=== PATIENT | female | born 1940 | race Caucasian/White ===

== ENCOUNTER 2021-12-24 06:30 | Inpatient (IN) | payer MEDICARE, BC ==
[~2021-12-24] VITALS: Ht 157.5 cm; Wt 55.4 kg
[2021-12-24 07:36] LABS: ALANINE AMINOTRANSFERASE 30 U/L (12-78); ALBUMIN 3.4 G/DL (3.4-5.0); ALKALINE PHOSPHATASE 82 IU/L (46-116); ANION GAP 15 (8-16); ASPARTATE AMINO TRANSFERASE 32 U/L (10-37); BILIRUBIN,TOTAL 0.3 MG/DL (0.1-1.0); BLOOD UREA NITROGEN 41 MG/DL (7-18); BUN/CREATININE RATIO 22.2 (6.6-38.0); CALCIUM 8.8 MG/DL (8.5-10.1); CHLORIDE 108 MMOL/L (99-107); CREATININE 1.85 MG/DL (0.40-0.90); GLUCOSE 145 MG/DL (70-104); POTASSIUM 4.4 MMOL/L (3.5-5.1); SODIUM 144 MMOL/L (135-145); TOTAL PROTEIN 6.7 G/DL (6.4-8.2); eGFR 26 ML/MIN
[2021-12-24 07:37] LABS: BASOPHILS % (AUTO) 0.5 % (0-1); EOSINOPHILS # (AUTO) 0.1 X10'3 (0-0.9); HEMATOCRIT 31.8 % (35.0-45.0); HEMOGLOBIN 10.7 g/dl (12.0-16.0); LYMPHOCYTES # (AUTO) 1.3 X10'3 (1.1-4.8); LYMPHOCYTES % (AUTO) 22.8 % (21-51); MEAN CORPUSCULAR HEMOGLOBIN 30.9 PG (27.0-31.0); MEAN CORPUSCULAR HGB CONC 33.8 g/dL (33.0-36.5); MEAN CORPUSCULAR VOLUME 91.4 FL (78-98); MEAN PLATELET VOLUME 8.9 FL (7.4-10.4); MONOCYTES # (AUTO) 0.4 X10'3 (0-0.9); MONOCYTES % (AUTO) 7.6 % (2-12); NEUTROPHILS # (AUTO) 3.8 X10'3 (1.8-7.7); NEUTROPHILS % (AUTO) 68.1 % (42-75); PLATELET COUNT 224 X10'3 (140-440); RED BLOOD COUNT 3.48 X10'6 (4.20-5.60); RED CELL DISTRIBUTION WIDTH 12.8 % (11.5-14.5); WHITE BLOOD COUNT 5.6 X10'3 (4.5-11.0)
--- NOTE | 2021-12-24 09:20 | NUR ---
discuss the pt condition with dr bruno and asked if we are going to do anything about pt elevated trop ,as per md he will contact the bin filler and get there recommendation.
--- NOTE | 2021-12-24 09:30 | NUR ---
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
[2021-12-24] MEDS ORDERED: heparin 10,000 units/1 ML INJ IV ONE (09:55)
--- NOTE | 2021-12-24 10:38 | NUR ---
clarified with [facility] pharmacist that pt need heparin bolus which is 60U/kg which is equal to 3324 bolus and for infusion 12x55.4=664.8 . as per [facility] pharmacist do 3500 for bolus and 7 ml for infusion.
--- NOTE | 2021-12-24 10:46 | NUR ---
dr moody at bedside verbal order for nitro tab and protonix 40 mg iv once.
[2021-12-24] MEDS ORDERED: pantoprazole 40MG/NS 100ML BAG 100 ML IV ONE ×2 (10:50→10:53)
[2021-12-24] MEDS ORDERED: nitroGLYCERIN 0.4mg SUBLingual tab SL PRN (10:50)
[2021-12-24] MEDS: heparin 25,000 UNIT/250ml bag 250 ML IV SCH (10:52)
[2021-12-24] MEDS ORDERED: HYDROcodone/acetaminophen 5mg/325mg tablet PO PRN (11:20)
[2021-12-24] MEDS ORDERED: magnesium 2GM in 50ml NS 50 ML IV PRN (11:20)
[2021-12-24] MEDS ORDERED: magnesium Cl slow-release 64mg tablet PO PRN (11:20)
[2021-12-24] MEDS ORDERED: potassium Cl 20 mEq SR tablet PO PRN ×2 (11:20)
[2021-12-24] MEDS ORDERED: potassium CL 10mEq/100ml bag 100 ML IV PRN (11:20)
[2021-12-24] MEDS ORDERED: acetaminophen 325mg tablet PO PRN (11:20)
[2021-12-24] MEDS ORDERED: magnesium 4gm in 100ml NS 100 ML IV PRN (11:20)
[2021-12-24] MEDS ORDERED: ondansetron/PF 4mg/2ml inj IV PRN (11:20)
--- NOTE | 2021-12-24 11:20 | NUR ---
paged dr moody and spoke to her regarding pt lower back pain and pt is requesting for norco 10 .As per she will order meds.
[2021-12-24] MEDS: HYDROcodone/acetaminophen 10/325mg tab PO PRN ×2 (11:37→18:49)
[2021-12-24] MEDS ORDERED: ATOR20TA66 PO (12:55)
[2021-12-24] MEDS ORDERED: HYDR-3964 PO (12:55)
[2021-12-24] MEDS ORDERED: LEVO100T9 PO (12:55)
[2021-12-24] MEDS ORDERED: CARV3.122 PO (12:55)
[2021-12-24] MEDS ORDERED: LISI5TAB22 PO (12:55)
[2021-12-24] MEDS ORDERED: FERR325T7 PO (12:55)
[2021-12-24 13:17] LABS: POTASSIUM 4.4 MMOL/L (3.5-5.1)
[2021-12-24] MEDS ORDERED: dextrose 50%-water 50ml dispensing syringe IV PRN ×2 (14:25)
[2021-12-24] MEDS ORDERED: glucagon, human recombinant 1mg kit SUBCUT PRN (14:25)
[2021-12-24] MEDS ORDERED: DEXTROSE 15 GM of carb/4 tabs (each vial/BOTTLE has 4 tablets) PO PRN ×2 (14:25)
[2021-12-24] MEDS ORDERED: MESSAGE TO PHARMACY PO ONE (14:25)
[2021-12-24 14:54] LABS: HEMOGLOBIN A1C 7.5 % (4.5-6.2)
[2021-12-24 20:00] VITALS: BP 126/87
[2021-12-24] MEDS: K and/or MAG REPLACEMENT MC SCH (20:00)
[2021-12-24] MEDS: insulin glargine (Lantus) pen - multi-dose SQ SCH (20:04)
[2021-12-24 22:00] VITALS: BP 125/50
[2021-12-25 01:18] LABS: BASOPHILS # (AUTO) 0.1 X10'3 (0-0.2); BASOPHILS % (AUTO) 0.8 % (0-1); EOSINOPHILS # (AUTO) 0.3 X10'3 (0-0.9); EOSINOPHILS % (AUTO) 4.4 % (0-6); HEMATOCRIT 31.9 % (35.0-45.0); HEMOGLOBIN 10.2 g/dl (12.0-16.0); LYMPHOCYTES # (AUTO) 1.9 X10'3 (1.1-4.8); MEAN CORPUSCULAR HEMOGLOBIN 30.3 PG (27.0-31.0); MEAN CORPUSCULAR VOLUME 94.5 FL (78-98); MEAN PLATELET VOLUME 9.2 FL (7.4-10.4); MONOCYTES # (AUTO) 0.6 X10'3 (0-0.9); MONOCYTES % (AUTO) 8.6 % (2-12); NEUTROPHILS # (AUTO) 3.8 X10'3 (1.8-7.7); NEUTROPHILS % (AUTO) 57.2 % (42-75); PLATELET COUNT 206 X10'3 (140-440); RED BLOOD COUNT 3.38 X10'6 (4.20-5.60); RED CELL DISTRIBUTION WIDTH 13.7 % (11.5-14.5); WHITE BLOOD COUNT 6.6 X10'3 (4.5-11.0)
[2021-12-25] MEDS: heparin 10,000 units/1 ML INJ IV PRN ×2 (01:42→16:52)
[2021-12-25 01:48] LABS: ALBUMIN 3.3 G/DL (3.4-5.0); ANION GAP 17 (8-16); BLOOD UREA NITROGEN 52 MG/DL (7-18); BUN/CREATININE RATIO 24.3 (6.6-38.0); CALCIUM 8.3 MG/DL (8.5-10.1); CHLORIDE 104 MMOL/L (99-107); CHOL/HDL RATIO 2.4 (0.00-4.99); CHOLESTEROL 156 MG/DL (0-200); CREATININE 2.14 MG/DL (0.40-0.90); HDL CHOLESTEROL 65 MG/DL (35-60); LDL CHOLESTEROL 66 MG/DL (50-100); MAGNESIUM 1.9 MG/DL (1.5-2.4); POTASSIUM 5.8 MMOL/L (3.5-5.1); SODIUM 137 MMOL/L (135-145); TOTAL CARBON DIOXIDE 16.5 MMOL/L (24-32); TRIGLYCERIDES 113 MG/DL (20-135); eGFR 22 ML/MIN
[2021-12-25] MEDS: HYDROcodone/acetaminophen 10/325mg tab PO PRN ×3 (01:56→22:54)
[2021-12-25 02:00] VITALS: BP 151/59
[2021-12-25 02:02] LABS: GLUCOSE 504 MG/DL (70-104)
--- NOTE | 2021-12-25 02:18 | NUR ---
CALLED DR. MCCANN FOR CRITICAL RESULTS. ORDERS TO FOLLOW HYPERGLYCEMIC PROTOCOL. PER PROTOCOL WILL GIVE 6 UNITS OF SHORT ACTING INSULIN. WILL RE CHECK BS. Addendum: 12/25/21 at 0225 by Ning Brizuela RN PT IS TYPE ONE DIABETIC AND I WILL ADMINISTER 3 UNITS PER PROTOCOL
[2021-12-25] MEDS: insulin Lispro (HumaLOG) vial - multi-dose SQ SCH ×4 (02:24→19:16)
[2021-12-25 05:32] VITALS: BP 118/55
[2021-12-25 06:00] VITALS: BP 121/66
--- NOTE | 2021-12-25 07:28 | NUR ---
Diabetes consult: Noted pt w/ hx of DM, A1c 7.5 has insulin pump. Fair control and A1c appropriate for age per ADA guidelines. DM ed no warranted at this time. Addendum: 12/25/21 at [address] Amended: Links added.
[2021-12-25] MEDS: K and/or MAG REPLACEMENT MC SCH ×2 (08:00→20:00)
--- NOTE | 2021-12-25 09:20 | NUR ---
cardiac aptt is 97. Lizette RUIZ and stopped heparin gtt per protocol.
[2021-12-25] MEDS: levoTHYROXINE 100mcg tablet PO SCH (10:15)
[2021-12-25] MEDS: normal saline 1000ml 1,000 ML IV SCH ×2 (10:55→19:16)
[2021-12-25 11:00] VITALS: BP 115/53
[2021-12-25] MEDS: heparin 25,000 UNIT/250ml bag 250 ML IV SCH ×2 (12:38→13:13)
[2021-12-25 15:00] VITALS: BP 110/34
[2021-12-25] MEDS: carVEDilol 3.125mg tablet PO SCH (20:12)
[2021-12-25] MEDS: atorvastatin 20mg tablet PO SCH (20:12)
[2021-12-25] MEDS ORDERED: mag hydrox/Alum hydrox/simeth 30ml oral suspension PO PRN (22:00)
[2021-12-25] MEDS: insulin glargine (Lantus) pen - multi-dose SQ SCH (23:06)
[2021-12-26] MEDS: normal saline 1000ml 1,000 ML IV SCH ×3 (05:05→19:52)
[2021-12-26 06:00] VITALS: BP 128/56
[2021-12-26] MEDS: HYDROcodone/acetaminophen 10/325mg tab PO PRN ×2 (06:29→17:35)
[2021-12-26 06:41] LABS: BASOPHILS % (AUTO) 0.6 % (0-1); EOSINOPHILS # (AUTO) 0.4 X10'3 (0-0.9); EOSINOPHILS % (AUTO) 6.2 % (0-6); HEMATOCRIT 29.7 % (35.0-45.0); HEMOGLOBIN 9.6 g/dl (12.0-16.0); LYMPHOCYTES # (AUTO) 2.2 X10'3 (1.1-4.8); LYMPHOCYTES % (AUTO) 33.4 % (21-51); MEAN CORPUSCULAR HEMOGLOBIN 30.6 PG (27.0-31.0); MEAN CORPUSCULAR HGB CONC 32.5 g/dL (33.0-36.5); MEAN CORPUSCULAR VOLUME 94.2 FL (78-98); MEAN PLATELET VOLUME 9.1 FL (7.4-10.4); MONOCYTES # (AUTO) 0.6 X10'3 (0-0.9); NEUTROPHILS # (AUTO) 3.4 X10'3 (1.8-7.7); NEUTROPHILS % (AUTO) 50.8 % (42-75); PLATELET COUNT 196 X10'3 (140-440); RED BLOOD COUNT 3.15 X10'6 (4.20-5.60); RED CELL DISTRIBUTION WIDTH 13.4 % (11.5-14.5); WHITE BLOOD COUNT 6.7 X10'3 (4.5-11.0)
[2021-12-26 07:11] LABS: ALBUMIN 3.1 G/DL (3.4-5.0); ANION GAP 15 (8-16); BLOOD UREA NITROGEN 49 MG/DL (7-18); BUN/CREATININE RATIO 23.8 (6.6-38.0); CALCIUM 8.3 MG/DL (8.5-10.1); CHLORIDE 109 MMOL/L (99-107); CREATININE 2.06 MG/DL (0.40-0.90); GLUCOSE 346 MG/DL (70-104); MAGNESIUM 1.9 MG/DL (1.5-2.4); POTASSIUM 5.2 MMOL/L (3.5-5.1); SODIUM 141 MMOL/L (135-145); TOTAL CARBON DIOXIDE 17.5 MMOL/L (24-32); eGFR 23 ML/MIN
[2021-12-26] MEDS: K and/or MAG REPLACEMENT MC SCH ×2 (08:00→19:53)
[2021-12-26] MEDS: carVEDilol 3.125mg tablet PO SCH (09:15)
[2021-12-26] MEDS: levoTHYROXINE 100mcg tablet PO SCH (09:15)
[2021-12-26] MEDS: ferrous sulfate 325mg tablet PO SCH (09:15)
[2021-12-26] MEDS: heparin 10,000 units/1 ML INJ IV PRN (09:33)
[2021-12-26 12:00] VITALS: BP 141/65
[2021-12-26 13:34] LABS: CLARITY,URINE CLEAR (Clear); GLUCOSE, URINE >=1000 mg/dl (Neg); KETONES,URINE 15 mg/dl (Neg); LEUKOCYTE ESTERASE ,URINE NEGATIVE (Neg); NITRITES, URINE NEGATIVE (Neg); OCCULT BLOOD,URINE NEGATIVE (Neg); PH,URINE 5.5 (4.8-8.0); PROTEIN,URINE NEGATIVE (Neg); UROBILINOGEN,URINE 0.2 E.U/dL (0.2-1.0)
[2021-12-26 13:36] LABS: COLOR,URINE STRAW (Yellow); UA COLLECTION TYPE NON-SPECIFIED
[2021-12-26 13:43] LABS: BACTERIA,URINE NONE SEEN /HPF (Neg); RBC,URINE NONE SEEN /HPF (0-2); SQUAMOUS EPITHELIAL CELL,UR FEW /LPF (FEW); WBC,URINE NONE SEEN /HPF (0-4)
[2021-12-26 15:38] LABS: APTT 28 SECONDS (22-32)
[2021-12-26 16:00] VITALS: BP 169/43
--- NOTE | 2021-12-26 16:57 | NUR ---
Page Sent promotional table spacer PAGER ID: [phone] MESSAGE: [id number]. Lamine Dumont. sorry for harrassing you w/ this but her BP is low again now at 78/45. would you like to do a bolus on her. [id number] Sánchez
--- NOTE | 2021-12-26 16:59 | NUR ---
please disregard last note entered on this patient as that was intended to be written on 581T
[2021-12-26 19:00] VITALS: BP 149/44
[2021-12-26] MEDS: carvedilol 6.25mg tablet PO SCH (19:52)
[2021-12-26] MEDS: atorvastatin 20mg tablet PO SCH (19:54)
[2021-12-26] MEDS: insulin glargine (Lantus) pen - multi-dose SQ SCH (21:00)
[2021-12-26 22:00] VITALS: BP 124/41
--- NOTE | 2021-12-27 | NUR ---
pt requsted Blood glucose be checked. found 84. gave crackers and cheese. tolerated well. pt has insulin pump turned on per Dr. Chawla verbal order to day RN. will continue to monitor
[2021-12-27] MEDS: HYDROcodone/acetaminophen 10/325mg tab PO PRN ×2 (00:17→09:40)
[2021-12-27 02:12] VITALS: BP 116/44
[2021-12-27] MEDS: normal saline 1000ml 1,000 ML IV SCH ×2 (02:55→04:24)
[2021-12-27 06:04] LABS: BASOPHILS % (AUTO) 0.9 % (0-1); EOSINOPHILS # (AUTO) 0.3 X10'3 (0-0.9); EOSINOPHILS % (AUTO) 6.9 % (0-6); HEMATOCRIT 27.2 % (35.0-45.0); LYMPHOCYTES # (AUTO) 1.8 X10'3 (1.1-4.8); LYMPHOCYTES % (AUTO) 39.6 % (21-51); MEAN CORPUSCULAR HEMOGLOBIN 30.6 PG (27.0-31.0); MEAN CORPUSCULAR HGB CONC 33.1 g/dL (33.0-36.5); MEAN CORPUSCULAR VOLUME 92.5 FL (78-98); MONOCYTES # (AUTO) 0.6 X10'3 (0-0.9); MONOCYTES % (AUTO) 12.2 % (2-12); NEUTROPHILS # (AUTO) 1.9 X10'3 (1.8-7.7); NEUTROPHILS % (AUTO) 40.4 % (42-75); PLATELET COUNT 178 X10'3 (140-440); RED BLOOD COUNT 2.94 X10'6 (4.20-5.60); RED CELL DISTRIBUTION WIDTH 13.3 % (11.5-14.5); WHITE BLOOD COUNT 4.6 X10'3 (4.5-11.0)
--- NOTE | 2021-12-27 06:14 | NUR ---
reported to days. noted pt anticipates discharge today
[2021-12-27 06:31] LABS: ALBUMIN 2.8 G/DL (3.4-5.0); ANION GAP 9 (8-16); BLOOD UREA NITROGEN 43 MG/DL (7-18); BUN/CREATININE RATIO 24.4 (6.6-38.0); CALCIUM 8.7 MG/DL (8.5-10.1); CHLORIDE 113 MMOL/L (99-107); CREATININE 1.76 MG/DL (0.40-0.90); GLUCOSE 67 MG/DL (70-104); MAGNESIUM 1.7 MG/DL (1.5-2.4); POTASSIUM 4.4 MMOL/L (3.5-5.1); SODIUM 144 MMOL/L (135-145); TOTAL CARBON DIOXIDE 22.1 MMOL/L (24-32); eGFR 28 ML/MIN
--- NOTE | 2021-12-27 06:53 | NUR ---
Patient in room MED 314. I have received report from MURRAY Yeh and had the opportunity to ask questions and assume patient care.
[2021-12-27] MEDS: K and/or MAG REPLACEMENT MC SCH (08:00)
[2021-12-27] MEDS: levoTHYROXINE 100mcg tablet PO SCH (08:01)
[2021-12-27] MEDS: ferrous sulfate 325mg tablet PO SCH (08:01)
[2021-12-27] MEDS: carvedilol 6.25mg tablet PO SCH (08:01)
[2021-12-27] MEDS ORDERED: CARV6.253 PO (08:43)
== END 2021-12-27 11:00 | disposition home or self-care (01) | DRG 280 ==
LOC: ER 06:31 → ED HOLD 11:22 → MED 3N 20:00
PROVIDERS: ADMIT Internal Medicine; ATTEND Internal Medicine
DX: I21.4 Non-ST elevation (NSTEMI) myocardial infarction (principal); G93.41 Metabolic encephalopathy; I47.1 Supraventricular tachycardia; N17.9 Acute kidney failure, unspecified; I12.9 Hypertensive chronic kidney disease with stage 1 through stage 4 chronic kidney disease, or unspecified chronic kidney disease; E11.649 Type 2 diabetes mellitus with hypoglycemia without coma; D64.9 Anemia, unspecified; E03.9 Hypothyroidism, unspecified; E11.22 Type 2 diabetes mellitus with diabetic chronic kidney disease; E78.5 Hyperlipidemia, unspecified; G89.4 Chronic pain syndrome; Z96.41 Presence of insulin pump (external) (internal); K21.9 Gastro-esophageal reflux disease without esophagitis; F41.9 Anxiety disorder, unspecified; M54.9 Dorsalgia, unspecified; R25.2 Cramp and spasm; R10.13 Epigastric pain; I25.10 Atherosclerotic heart disease of native coronary artery without angina pectoris; I35.9 Nonrheumatic aortic valve disorder, unspecified; I49.5 Sick sinus syndrome; N18.9 Chronic kidney disease, unspecified; Z79.4 Long term (current) use of insulin; Z90.710 Acquired absence of both cervix and uterus; Z95.0 Presence of cardiac pacemaker; Z95.1 Presence of aortocoronary bypass graft; Z95.2 Presence of prosthetic heart valve; Z88.8 Allergy status to other drugs, medicaments and biological substances; Z79.899 Other long term (current) drug therapy
CPT/HCPCS: 36415; 71045; 76770; 80048; 80053; 80061; 81001; 82948; 83036; 83735; 83880; 84132; 84443; 84484; 85025; 85610; 85730; 87081; 93005; 93306; 96374; 96375; 99285; C9113; G0378; J1644; J1815; J7030